=== PATIENT | female | born 1985 | race Caucasian/White ===

== ENCOUNTER 2019-04-28 15:59 | Emergency (ER) | payer OTHER ==
--- NOTE | 2019-04-28 16:33 | ER Document Report ---
ED Medical Screen (RME) - General Chief Complaint: Vaginal Bleeding Stated Complaint: ABNORMAL BLEEDING Time Seen by Provider: 04/28/19 16:24 Mode of Arrival: Ambulatory Information source: Patient Notes: 33-year-old female presented to ED for complaint of pain and bleeding vaginally. She states she had a LEEP done 9 days ago and she forgot that she was not allowed to get into the ocean. She states yesterday she got into the ocean about 20 minutes. She states last night she vomited one time and did not think anything more about it then this morning she had a small amount of bleeding and she went on with her day not thinking anything about it. She states then as the day progressed she started having more bleeding and cramping. She states she has been to several doctors and no one would help her but they all told her that she needs to get started on antibiotics because she had a LEEP and is now bleeding. Patient is alert oriented respirations regular and unlabored speaking in full sentences walking and even steady gait. She states she has been afebrile. I have greeted and performed a rapid initial assessment of this patient. A comprehensive ED assessment and evaluation of the patient, analysis of test results and completion of medical decision making process will be conducted by an additional ED providers. Dictation of this chart was performed using voice recognition software; therefore, there may be some unintended grammatical errors. - Related Data Allergies/Adverse Reactions: No Known Allergies Allergy (Unverified 04/28/19 16:01) Past Medical History - Social History Chew tobacco use (# tins/day): No Frequency of alcohol use: Occasional Drug Abuse: None Renal/ Medical History: Denies: Hx Peritoneal Dialysis Past Surgical History: Reports: Hx Gynecologic Surgery - leep, Hx Tonsillectomy Physical Exam - Vital signs Vitals: Temp Pulse Resp BP Pulse Ox 98.3 F 93 18 132/79 H 98 04/28/19 16:03 04/28/19 16:03 04/28/19 16:03 04/28/19 16:03 04/28/19 16:03 Course - Vital Signs Vital signs: Temp Pulse Resp BP Pulse Ox 98.3 F 93 18 132/79 H 98 04/28/19 16:03 04/28/19 16:03 04/28/19 16:03 04/28/19 16:03 04/28/19 16:03
[2019-04-28 17:42] LABS: ABSOLUTE BASOPHILS # (AUTO) 0.1 10^3/uL (0.0-0.2); ABSOLUTE LYMPHOCYTES (AUTO) 1.5 10^3/uL (0.5-4.7); PLATELET COUNT 222 10^3/uL (150-450); TOTAL CELLS COUNTED % (AUTO) 100 %
[2019-04-28 17:44] LABS: APPEARANCE,URINE CLEAR; BILIRUBIN,URINE NEGATIVE (NEGATIVE); COLOR,URINE YELLOW; GLUCOSE, URINE NEGATIVE (NEGATIVE); KETONES,URINE TRACE mg/dL (NEGATIVE); LEUKOCYTE ESTERASE,URINE SMALL (NEGATIVE); NITRITE,URINE NEGATIVE (NEGATIVE); PROTEIN,URINE NEGATIVE (NEGATIVE); URINE SPECIFIC GRAVITY 1.019; UROBILINOGEN,URINE NEGATIVE mg/dL (<2.0)
[2019-04-28 17:46] LABS: ABSOLUTE EOSINOPHILS # (AUTO) 0.2 10^3/uL (0.0-0.6); ABSOLUTE MONOCYTES (AUTO) 0.5 10^3/uL (0.1-1.4); ABSOLUTE NEUT (AUTO) 6.7 10^3/uL (1.7-8.2); BASOPHILS % (AUTO) 0.6 % (0-2); EOSINOPHILS % (AUTO) 2.5 % (0-6); HEMATOCRIT 40.5 % (36.0-47.0); HEMOGLOBIN 13.5 g/dL (12.0-15.5); LYMPHOCYTES % (AUTO) 16.9 % (13-45); MEAN CORPUSCULAR HEMOGLOBIN 30.1 pg (27.0-33.4); MEAN CORPUSCULAR HGB CONC 33.3 g/dL (32.0-36.0); MEAN CORPUSCULAR VOLUME 91 fl (80-97); MONOCYTES % (AUTO) 5.7 % (3-13); RED BLOOD COUNT 4.47 10^6/uL (3.72-5.28); SEGMENTED NEUTROPHILS % (AUTO) 74.3 % (42-78)
[2019-04-28 18:04] LABS: ALBUMIN 4.5 g/dL (3.5-5.0); ALKALINE PHOSPHATASE 43 U/L (38-126); ANION GAP 10 (5-19); ASPARTATE AMINO TRANSFERASE 18 U/L (14-36); BILIRUBIN,DIRECT 0.2 mg/dL (0.0-0.4); BILIRUBIN,TOTAL 0.3 mg/dL (0.2-1.3); BLOOD UREA NITROGEN 14 mg/dL (7-20); CALCIUM 9.8 mg/dL (8.4-10.2); CARBON DIOXIDE 26 mmol/L (22-30); CHLORIDE 102 mmol/L (98-107); GLUCOSE 95 mg/dL (75-110); POTASSIUM 4.2 mmol/L (3.6-5.0)
--- NOTE | 2019-04-28 21:12 | ER Document Report ---
ED GI/ - General Chief Complaint: Vaginal Bleeding Stated Complaint: ABNORMAL BLEEDING Time Seen by Provider: 04/28/19 16:24 Mode of Arrival: Ambulatory Notes: Patient is a 33-year-old female that comes emergency department for chief complaint of vaginal bleeding and abdominal cramping. She states she is concerned because she had a LEEP procedure done 9 days ago at [place] [facility] by Dr. Pham, she states that she went into the ocean yesterday for about 20 minutes. She states that she also threw up once. She states she has had some clearish discharge but no discolored discharge, she denies fever/chills, she d enies severe pain. She states she was told to avoid getting the ocean and given general precautions for 4 weeks but she forgot. She states she was seen at urgent care and sent to the emergency department. - Related Data Allergies/Adverse Reactions: No Known Allergies Allergy (Unverified 04/28/19 16:01) Past Medical History - General Information source: Patient - Social History Smoking Status: Current Every Day Smoker Chew tobacco use (# tins/day): No Frequency of alcohol use: Occasional Drug Abuse: None Lives with: Family Family History: Reviewed & Not Pertinent Patient has suicidal ideation: No Patient has homicidal ideation: No Renal/ Medical History: Denies: Hx Peritoneal Dialysis Past Surgical History: Reports: Hx Gynecologic Surgery - leep, Hx Tonsillectomy Review of Systems - Review of Systems Constitutional: No symptoms reported EENT: No symptoms reported Cardiovascular: No symptoms reported Respiratory: No symptoms reported Gastrointestinal: See HPI Genitourinary: See HPI Female Genitourinary: See HPI Musculoskeletal: No symptoms reported Skin: No symptoms reported Hematologic/Lymphatic: No symptoms reported Neurological/Psychological: No symptoms reported Physical Exam - Vital signs Vitals: Temp Pulse Resp BP Pulse Ox 98.3 F 93 18 132/79 H 98 04/28/19 16:03 04/28/19 16:03 04/28/19 16:03 04/28/19 16:03 04/28/19 16:03 - Notes Notes: GENERAL: Alert, interacts well. No acute distress. HEAD: Normocephalic, atraumatic. EYES: Pupils equal, round, and reactive to light. Extraocular movements intact. ENT: Oral mucosa moist, tongue midline. Oropharynx unremarkable. Airway patent. LUNGS: Clear to auscultation bilaterally, no wheezes, rales, or rhonchi. No respiratory distress. HEART: Regular rate and rhythm. No murmur ABDOMEN: Soft, non-tender. Non-distended. GENITOURINARY: External exam unremarkable. No significant tenderness on specu lum exam. Small healing area over the cervix consistent with a LEEP procedure. No erythema, purulent drainage, or abnormal smell. No discharge noted. Small amount of bleeding noted. EXTREMITIES: Moves all 4 extremities spontaneously. No edema, normal radial and dorsalis pedis pulses bilaterally. No cyanosis. BACK: no cervical, thoracic, lumbar midline tenderness. No saddle anesthesia, normal distal neurovascular exam. Moves all extremities in full range of motion. NEUROLOGICAL: Alert and oriented x3. Normal speech. Cranial nerves II through XII grossly intact. PSYCH: Normal affect, normal mood. SKIN: Warm, dry, normal turgor. No rashes or lesions noted. Course - Re-evaluation Re-evalutation: Patient is well-appearing. Soft benign abdomen. Speculum exam shows healed area where the LEEP procedure was performed, there is a small amount of bleeding but no heavy bleeding. No concerning erythema, purulent drainage, discharge noted. No significant tenderness either. Wet mount does show bacteria and white blood cells however. Physical exam really does not suggest bacterial vaginosis however. Abdomen is soft. Patient is well-appearing. I discussed recommendations for disposition for the patient with Dr. Pop. Because patient was exposed to salt water with the healing area, there is some concern that she could develop infection from vibrio. Decision was made to place patient on doxycycline, she will follow-up on Wednesday with her CLINICAL TRAINING SPECIALIST, she will return if she worsens. Patient is very agreeable with this plan. - Vital Signs Vital signs: Temp Pulse Resp BP Pulse Ox 97.5 F 56 L 16 108/63 100 04/28/19 23:35 04/28/19 23:35 04/28/19 23:35 04/28/19 23:35 04/28/19 23:35 - Laboratory Result Diagrams: 04/28/19 17:15 04/28/19 17:15 Laboratory results interpreted by me: 04/28/19 17:15 Urine Ketones TRACE H Urine Blood LARGE H Ur Leukocyte Esterase SMALL H Discharge - Discharge Clinical Impression: Abdominal cramping Post-op bleeding Qualifiers: Surgical complication system/body Area: genitourinary Procedure type: genitourinary Qualified Code(s): N99.820 - Postprocedural hemorrhage of a genitourinary system organ or structure following a genitourinary system procedure Condition: Stable Disposition: HOME, SELF-CARE Additional Instructions: Your work-up is reassuring. We are covering you for doxycycline because of the salt water exposure to the bleeding postoperative area to prevent infection from developing. Take doxycycline as prescribed to completion. Follow-up with your CLINICAL TRAINING SPECIALIST for additional management. Return if you worsen including fever, severe worsening pain, discolored or foul smelling discharge, or any other concerning or worsening symptoms. Prescriptions: Doxycycline Hyclate 100 mg PO BID #14 capsule
[2019-04-28 22:21] LABS: BACTERIA (WET MOUNT) 3+ BACTERIA SEEN; RBCS (WET MOUNT) 4+ RBCS SEEN; T.VAGINALIS (WET MOUNT) NO TRICHOMONAS SEEN; WBCS (WET MOUNT) 3+ WBCS SEEN; YEAST (WET MOUNT) NO YEAST SEEN
[2019-04-28] MEDS ORDERED: DOXYCYCLINE HYCLATE 100 MG TABLET PO ONE (22:35)
[2019-04-28 23:36] VITALS: BP 108/63
[2019-04-28 23:47] LABS: CHLAM PCR NOT DETECTED (NOT DETECT)
== END 2019-04-28 23:36 | disposition home or self-care (01) ==
LOC: ER 15:59
DX: N99.820 Postprocedural hemorrhage of a genitourinary system organ or structure following a genitourinary system procedure (principal); Y83.8 Other surgical procedures as the cause of abnormal reaction of the patient, or of later complication, without mention of misadventure at the time of the procedure; R10.9 Unspecified abdominal pain; R11.10 Vomiting, unspecified; F17.200 Nicotine dependence, unspecified, uncomplicated; Z98.890 Other specified postprocedural states
CPT/HCPCS: 36415; 80053; 81001; 84703; 85025; 87210; 87491; 87591; 99284